=== PATIENT | female | born 1980 | race Two or more races ===

== ENCOUNTER 2022-04-07 07:45 | Inpatient (IN) | payer OTHER ==
[~2022-04-07] VITALS: Ht 170.2 cm; Wt 104.8 kg
[2022-05-05] MEDS ORDERED: CRYSELLE-28 TA1 EACH (08:04)
[2022-05-05] MEDS ORDERED: MOUNJARO2.5 MG/0.5 (08:04)
== END 2022-05-06 10:39 | disposition home or self-care (01) | DRG 743 ==
LOC: EDSTATUS 07:45 → ADM 07:45 → OB/GYN 04-14 07:45 → O/R 05-05 05:30 → OB/GYN 05-05 07:00
PROVIDERS: ADMIT Obstetrics & Gynecology; ATTEND Obstetrics & Gynecology
PROC: 0UT74ZZ Resection of Bilateral Fallopian Tubes, Percutaneous Endoscopic Approach (ICD-10-PCS; 2022-05-05)
PROC: 0UT94ZZ Resection of Uterus, Percutaneous Endoscopic Approach (ICD-10-PCS; principal; 2022-05-05 07:00)
DX: D25.1 Intramural leiomyoma of uterus (principal); D25.2 Subserosal leiomyoma of uterus; N72 Inflammatory disease of cervix uteri; N80.03 Adenomyosis of the uterus; Z20.822 Contact with and (suspected) exposure to COVID-19